=== PATIENT | female | born 1975 | race Caucasian/White ===

== ENCOUNTER 2021-09-24 08:37 | Day surgery (SDC) | payer MEDICAID ==
[2021-09-15 11:39] LABS: BLOOD UREA NITROGEN,BUN 12 mg/dL (7.0-18.0); CHLORIDE,CL 106 mmol/L (98-107); GLUCOSE RANDOM 94 mg/dL (74-106); POTASSIUM,K 3.8 mmol/L (3.5-5.1); SODIUM,NA 138 mmol/L (136-145)
[~2021-09-24 08:37] MED LIST: Sodium Chloride 0.9% 10 ML Syringe FLUSH PRN; Sodium Chloride 0.9% 2.5 ML Syringe FLUSH PRN; Sodium Chloride 0.9% 20 ML SDV IV PRN; ceFAZolin 2 GM in Premix Bag 1 BAG IV ONE
[2021-09-24] MEDS ORDERED: Metoclopramide 10 MG/2 ML SDV IVPUSH PRN (08:51)
[2021-09-24] MEDS ORDERED: fentaNYL 100 MCG/2 ML SDV IVPUSH PRN (08:51)
[2021-09-24] MEDS ORDERED: Ondansetron 4 MG/2 ML SDV IVPUSH PRN ×2 (08:51→13:21)
[2021-09-24] MEDS ORDERED: Naloxone 0.4 MG/ML SDV IVPUSH PRN (08:51)
[2021-09-24] MEDS ORDERED: Albuterol 0.083% 2.5 MG/3 ML Neb Soln NEB PRN (08:51)
[2021-09-24] MEDS ORDERED: HYDROmorphone 1 MG/ML Syringe IVPUSH PRN (08:51)
[2021-09-24] MEDS: Lactated Ringers 1,000 ML IV SCH ×2 (09:30→19:05)
[2021-09-24] MEDS ORDERED: Ondansetron 4 MG/2 ML SDV ONE (09:44)
[2021-09-24] MEDS ORDERED: Ketorolac 30 MG/ML SDV ONE (09:45)
[2021-09-24] MEDS ORDERED: Glycopyrrolate 0.2 MG/ML SDV ONE (09:45)
[2021-09-24] MEDS ORDERED: fentaNYL 100 MCG/2 ML SDV ONE (09:45)
[2021-09-24] MEDS ORDERED: Rocuronium Bromide 50 MG/5 ML Syringe ONE (09:45)
[2021-09-24] MEDS ORDERED: Midazolam 1 MG/ML 2 ML SDV ONE (09:45)
[2021-09-24] MEDS ORDERED: Propofol 200 MG/20 ML SDV ONE ×3 (09:45→12:24)
[2021-09-24] MEDS ORDERED: Dexmedetomidine 200 MCG/2 ML SDV ONE (09:45)
[2021-09-24] MEDS ORDERED: Fluorescein 5 ML Vial ONE (10:27)
[2021-09-24] MEDS ORDERED: Octyl 2-Cyanoacrylate 1 Tube ONE (10:27)
[2021-09-24] MEDS ORDERED: HYDROmorphone 2 MG/ML Syringe ONE (10:56)
[2021-09-24] MEDS ORDERED: Ketorolac 30 MG/ML SDV IVPUSH ONE (13:21)
[2021-09-24] MEDS ORDERED: Acetaminophen/oxyCODONE 325-5 MG Tab PO PRN ×2 (13:21)
[2021-09-24] MEDS ORDERED: Promethazine 25 MG/ML SDV IM PRN (13:21)
[2021-09-24] MEDS ORDERED: Morphine 4 MG/ML VIAL IVPUSH PRN (13:21)
[2021-09-24] MEDS ORDERED: Ketorolac 30 MG/ML SDV IVPUSH PRN (16:00)
[2021-09-25] MEDS: Lactated Ringers 1,000 ML IV SCH (03:21)
[2021-09-25 06:30] LABS: BLOOD UREA NITROGEN,BUN 8 mg/dL (7.0-18.0); CARBON DIOXIDE,CO2 23.6 mmol/L (21.0-32.0); CHLORIDE,CL 107 mmol/L (98-107); GLUCOSE RANDOM 117 mg/dL (74-106); POTASSIUM,K 4.1 mmol/L (3.5-5.1); SODIUM,NA 139 mmol/L (136-145)
== END 2021-09-25 11:00 | disposition home or self-care (01) ==
LOC: MW.SDS 08:37 → MW.MS 12:45 → MW.SDS 09-25 11:00
PROVIDERS: ATTEND Obstetrics & Gynecology
DX: D25.1 Intramural leiomyoma of uterus (principal); N72 Inflammatory disease of cervix uteri; N80.0 Endometriosis of uterus; N80.1 Endometriosis of ovary; N80.2 Endometriosis of fallopian tube; N87.9 Dysplasia of cervix uteri, unspecified; N84.1 Polyp of cervix uteri; N83.8 Other noninflammatory disorders of ovary, fallopian tube and broad ligament; N73.6 Female pelvic peritoneal adhesions (postinfective); J45.909 Unspecified asthma, uncomplicated; Z90.49 Acquired absence of other specified parts of digestive tract; Z98.51 Tubal ligation status; Z98.890 Other specified postprocedural states; N39.3 Stress incontinence (female) (male); Z01.812 Encounter for preprocedural laboratory examination; Z20.822 Contact with and (suspected) exposure to COVID-19
CPT/HCPCS: 36415; 49329; 58571; 80048; 81025; 84703; 85025; 85027; 86850; 86900; 86901; 87635; A9270; J0131; J0690; J1170; J1885; J2250; J2370; J2704; J3010; J3490; J7030; J7120; 00840; J2405; U0002